=== PATIENT | female | born 1935 | race African-American/Black ===

== ENCOUNTER 2020-12-27 21:21 | Inpatient (IN) | payer MEDICARE, MEDICAID ==
[~2020-12-27] VITALS: Ht 170.2 cm; Wt 86.7 kg
[~2020-12-27 21:21] MED LIST: ALPR1TAB2; AMLO10TA4; CLAR-44 PO; CLON0.2T PO; CLOP75TA33; DOCU-150 PO; ENAL10TA71; HYDR-4135; HYDR25TA; LEVO125T8 PO; METH-774 PO; OMEP20CA14 PO; SUCR1TAB PO; VALS160T2 PO; VALS320T2
[2020-12-27 22:45] LABS: CHLORIDE 109 mEq/L (98-107)
[2020-12-27 22:49] LABS: RED BLOOD CELL COUNT 3.05 mill/uL (4.2-5.4)
[2020-12-27 22:50] LABS: HEMATOCRIT. 21.8 % (36.0-48.0); LYMPHOCYTES % 30.3 % (20.0-50.0); MEAN CORPUSCULAR HEMOGLOBIN 20.4 pg (28.0-32.0); MEAN CORPUSCULAR VOLUME 71.7 fL (81.0-99.0); MEAN PLATELET VOLUME 8.9 fl (7.4-10.4); MONOCYTES % 10.9 % (2.0-8.0); NEUTROPHILS % 57.1 % (40.0-76.0); PLATELET 202 x1000/uL (130-400); RED CELL DISTRIBUTION WIDTH 21.2 % (11.6-14.6)
[2020-12-27 22:51] LABS: BASOPHILS % 0.7 % (0.0-2.0)
[2020-12-27 22:53] LABS: HEMOGLOBIN. 6.2 g/dL (12.0-16.0)
[2020-12-27] MEDS ORDERED: PANTOPRAZOLE SODIUM 40 MG/VIAL IV ONE (23:00)
[2020-12-27] MEDS ORDERED: FUROSEMIDE 100MG/10ML VIAL IV STA (23:07)
[2020-12-27] MEDS ORDERED: SODIUM BICARBONATE 8.4% 1 MEQ/ML 50ML SYR IV ONE (23:15)
[2020-12-27] MEDS ORDERED: ALBUTEROL (0.083%) 2.5MG/3ML NEB HHN ONE (23:15)
[2020-12-27] MEDS ORDERED: INSULIN REGULAR (HUMULIN R) 300UNITS/3ML VIAL IV ONE (23:15)
[2020-12-27] MEDS ORDERED: ASPIRIN 325MG EC TABLET PO ONE (23:15)
[2020-12-27] MEDS ORDERED: CALCIUM CHLORIDE 1GM/10ML SYR IV ONE (23:15)
[2020-12-27] MEDS ORDERED: DEXTROSE 50% WATER 50ML SYRINGE IV ONE (23:15)
[2020-12-28] VITALS (11 sets, daily range): BP systolic 93–167; BP diastolic 43–83
[2020-12-28] MEDS ORDERED: DIPHENHYDRAMINE 50MG/ML VIAL IV PRN (00:15)
[2020-12-28] MEDS ORDERED: ONDANSETRON HCL 4MG/2ML INJ IV PRN (00:15)
[2020-12-28] MEDS ORDERED: LORAZEPAM 0.5MG TABLET PO PRN (00:15)
[2020-12-28] MEDS ORDERED: ACETAMINOPHEN 325MG TABLET PO PRN (00:15)
[2020-12-28] MEDS ORDERED: MAGNESIUM/ALUMINUM HYDROXIDE/SIMETHICONE 30ML UDC PO PRN (00:15)
[2020-12-28] MEDS ORDERED: CLONIDINE 0.1MG TABLET PO PRN (00:15)
[2020-12-28] MEDS ORDERED: ZOLPIDEM TARTRATE 5MG TABLET PO PRN (00:15)
[2020-12-28] MEDS ORDERED: ALBUTEROL (0.5%) 2.5MG/0.5ML NEB HHN ONE (00:43)
[2020-12-28] MEDS: MORPHINE SULFATE 2 MG/ML CPJ (NOT FOR IM USE) IV PRN (04:22)
[2020-12-28] MEDS: SUCRALFATE 1 G/10 ML UDC PO SCH ×4 (08:13→21:29)
[2020-12-28] MEDS: LEVOTHYROXINE SODIUM 125MCG TABLET PO SCH (08:13)
[2020-12-28] MEDS ORDERED: AMLODIPINE 2.5MG TABLET PO SCH (09:00)
[2020-12-28] MEDS: ACETAMINOPHEN 325MG TABLET PO PRN (09:23)
[2020-12-28] MEDS: PANTOPRAZOLE SODIUM 40 MG/VIAL IV SCH ×2 (09:23→21:30)
[2020-12-28] MEDS: SODIUM CHLORIDE 0.9% 1,000 ML IV SCH ×2 (09:36→17:58)
[2020-12-28 09:38] LABS: HEMATOCRIT. 27.6 % (36.0-48.0); HEMOGLOBIN. 8.5 g/dL (12.0-16.0); MEAN CORPUSCULAR HEMOGLOBIN 22.8 pg (28.0-32.0); MEAN PLATELET VOLUME 9.1 fl (7.4-10.4); PLATELET 192 x1000/uL (130-400); RED BLOOD CELL COUNT 3.73 mill/uL (4.2-5.4); RED CELL DISTRIBUTION WIDTH 22.9 % (11.6-14.6)
[2020-12-28 12:57] LABS: PLATELET ESTIMATE NORMAL
[2020-12-28] MEDS: HYDRALAZINE HCL 50MG TABLET PO SCH ×2 (13:08→21:30)
[2020-12-28] MEDS: ALPRAZOLAM 0.5 MG TABLET PO PRN ×2 (13:08→21:30)
[2020-12-28] MEDS: IRON SUCROSE COMPLEX 100 MG/5 ML ML IV SCH (14:13)
[2020-12-28 17:44] LABS: BG BASE EXCESS -1.2 mmol/L (-2.0-2.0); BG CARBOXYHEMOGLOBIN 0.2 % (0.5-1.5); BG DEOXYHEMOGLOBIN 28.2 % (0.0-5.0); BG FRACTION INSPIRED OXYGEN 44; BG HCO3 ACT 24.6 mmol/L (22.0-26.0); BG METHEMOGLOBIN 0.1 % (0.0-1.5); BG OXYGEN SATURATION 71.7 % (92.0-98.5); BG OXYHEMOGLOBIN 71.5 % (94.0-97.0); BG PCO2 45.9 mmHg (35.0-45.0); BG PH 7.347 (7.350-7.450); BG PO2 40.2 mmHg (75.0-100.0); BG SAMPLE SITE RIGHT RADIAL; BG VENT MODE NASAL CANNULA
[2020-12-28] MEDS ORDERED: HYDRALAZINE 20MG/ML VIAL IV PRN (18:45)
[2020-12-28 21:15] LABS: TOTAL IRON BINDING CAPACITY 471 ug/dL (250-450)
[2020-12-28] MEDS: AMLODIPINE 5MG TABLET PO SCH (21:30)
[2020-12-29] VITALS (12 sets, daily range): BP systolic 105–153; BP diastolic 35–91
[2020-12-29] MEDS: MORPHINE SULFATE 2 MG/ML CPJ (NOT FOR IM USE) IV PRN ×2 (05:07→11:11)
[2020-12-29 06:04] LABS: BASOPHILS % 0.2 % (0.0-2.0); HEMATOCRIT. 27.2 % (36.0-48.0); HEMOGLOBIN. 8.2 g/dL (12.0-16.0); LYMPHOCYTES % 3.9 % (20.0-50.0); MEAN CORPUSCULAR HEMOGLOBIN 22.3 pg (28.0-32.0); MEAN CORPUSCULAR VOLUME 73.8 fL (81.0-99.0); MEAN PLATELET VOLUME 9.5 fl (7.4-10.4); MONOCYTES % 5.5 % (2.0-8.0); NEUTROPHILS % 90.4 % (40.0-76.0); PLATELET 166 x1000/uL (130-400); RED BLOOD CELL COUNT 3.69 mill/uL (4.2-5.4); RED CELL DISTRIBUTION WIDTH 23.4 % (11.6-14.6)
[2020-12-29] MEDS: SUCRALFATE 1 G/10 ML UDC PO SCH ×4 (06:21→20:35)
[2020-12-29] MEDS: HYDRALAZINE HCL 50MG TABLET PO SCH ×2 (06:22→13:27)
[2020-12-29] MEDS: LEVOTHYROXINE SODIUM 125MCG TABLET PO SCH (06:22)
[2020-12-29 06:28] LABS: PHOSPHORUS 3.9 mg/dL (2.5-4.9)
[2020-12-29] MEDS: PANTOPRAZOLE SODIUM 40 MG/VIAL IV SCH ×2 (08:34→20:35)
[2020-12-29] MEDS: AMLODIPINE 5MG TABLET PO SCH ×2 (08:35→20:36)
[2020-12-29 11:41] LABS: CLARITY URINE CLEAR (CLEAR); COLOR URINE YELLOW (YELLOW); KETONES URINE NEGATIVE (NEGATIVE); LEUKOCYTE ESTERASE URINE NEGATIVE (NEGATIVE); NITRITE URINE NEGATIVE (NEGATIVE); OCCULT BLOOD URINE NEGATIVE (NEGATIVE); PROTEIN URINE NEGATIVE (NEGATIVE); SPECIFIC GRAVITY URINE 1.016 (1.005-1.030); UROBILINOGEN URINE 0.2 E.U./dL (0.2-1.0)
[2020-12-29 13:23] LABS: BG BASE EXCESS -0.8 mmol/L (-2.0-2.0); BG DEOXYHEMOGLOBIN 0.8 % (0.0-5.0); BG HCO3 ACT 25.1 mmol/L (22.0-26.0); BG METHEMOGLOBIN 0.4 % (0.0-1.5); BG OXYGEN SATURATION 99.2 % (92.0-98.5); BG OXYHEMOGLOBIN 98.8 % (94.0-97.0); BG PCO2 47.5 mmHg (35.0-45.0); BG PH 7.341 (7.350-7.450); BG SAMPLE SITE RIGHT BRACHIAL; BG TOTAL HEMOGLOBIN 9.2 g/dL (12.0-18.0); BG VENT MODE MASK - BIPAP
[2020-12-29] MEDS: IRON SUCROSE COMPLEX 100 MG/5 ML ML IV SCH (13:30)
[2020-12-29] MEDS: ALPRAZOLAM 0.5 MG TABLET PO PRN (13:40)
[2020-12-29] MEDS ORDERED: FUROSEMIDE 40MG/4ML VIAL IVP SCH (13:45)
[2020-12-29] MEDS: HYDRALAZINE HCL 25MG TABLET PO SCH ×2 (14:00→22:15)
[2020-12-29] MEDS: DOCUSATE SODIUM 100MG CAPSULE PO PRN (18:58)
[2020-12-30] VITALS (14 sets, daily range): BP systolic 118–154; BP diastolic 59–89
[2020-12-30] MEDS: ALPRAZOLAM 0.5 MG TABLET PO PRN ×3 (00:14→20:34)
[2020-12-30] MEDS: HYDRALAZINE HCL 25MG TABLET PO SCH ×3 (06:37→21:35)
[2020-12-30] MEDS: SUCRALFATE 1 G/10 ML UDC PO SCH ×4 (06:37→20:34)
[2020-12-30] MEDS: LEVOTHYROXINE SODIUM 125MCG TABLET PO SCH (06:37)
[2020-12-30 07:42] LABS: HEMATOCRIT. 25.1 % (36.0-48.0); HEMOGLOBIN. 7.6 g/dL (12.0-16.0); MEAN CORPUSCULAR HEMOGLOBIN 22.5 pg (28.0-32.0); MEAN CORPUSCULAR VOLUME 74.1 fL (81.0-99.0); MEAN PLATELET VOLUME 9.9 fl (7.4-10.4); PLATELET 164 x1000/uL (130-400); RED BLOOD CELL COUNT 3.38 mill/uL (4.2-5.4)
[2020-12-30 08:53] LABS: BG BASE EXCESS 2.1 mmol/L (-2.0-2.0); BG CARBOXYHEMOGLOBIN 0.6 % (0.5-1.5); BG DEOXYHEMOGLOBIN 8.8 % (0.0-5.0); BG FRACTION INSPIRED OXYGEN 50; BG HCO3 ACT 27.3 mmol/L (22.0-26.0); BG METHEMOGLOBIN 0.5 % (0.0-1.5); BG OXYGEN SATURATION 91.1 % (92.0-98.5); BG OXYHEMOGLOBIN 90.1 % (94.0-97.0); BG PCO2 45.5 mmHg (35.0-45.0); BG PH 7.396 (7.350-7.450); BG PO2 62.8 mmHg (75.0-100.0); BG SAMPLE SITE RIGHT RADIAL; BG TOTAL HEMOGLOBIN 8.3 g/dL (12.0-18.0); BG VENT MODE MASK - BIPAP
[2020-12-30] MEDS: AMLODIPINE 5MG TABLET PO SCH (08:54)
[2020-12-30] MEDS: PANTOPRAZOLE SODIUM 40 MG/VIAL IV SCH ×2 (08:55→20:34)
[2020-12-30 09:13] LABS: VITAMIN B12 SERUM > 2000.0 pg/mL (211-911)
[2020-12-30] MEDS: ACETAMINOPHEN 325MG TABLET PO PRN ×2 (10:29→23:14)
[2020-12-30 11:10] LABS: FERRITIN 117 ng/mL (10-291)
[2020-12-30] MEDS: IRON SUCROSE COMPLEX 100 MG/5 ML ML IV SCH (14:49)
[2020-12-30 16:31] LABS: NUCLEATED RED BLOOD CELLS 3 /100 WBC; PLATELET ESTIMATE NORMAL
[2020-12-30] MEDS: IPRATROPIUM/ALBUTEROL 0.5-3(2.5)MG/3ML NEB HHN SCH (21:03)
[2020-12-30] MEDS: DILTIAZEM HCL 60MG TABLET PO SCH (21:35)
[2020-12-31] VITALS (11 sets, daily range): BP systolic 121–148; BP diastolic 49–89
[2020-12-31] MEDS: IPRATROPIUM/ALBUTEROL 0.5-3(2.5)MG/3ML NEB HHN SCH ×4 (02:25→21:00)
[2020-12-31 05:47] LABS: BASOPHILS % 0.5 % (0.0-2.0); EOSINOPHILS % 0.7 % (0.0-5.0); LYMPHOCYTES % 10.1 % (20.0-50.0); MEAN CORPUSCULAR HEMOGLOBIN 22.4 pg (28.0-32.0); MEAN CORPUSCULAR VOLUME 76.1 fL (81.0-99.0); MEAN PLATELET VOLUME 9.5 fl (7.4-10.4); NEUTROPHILS % 77.7 % (40.0-76.0); PLATELET 158 x1000/uL (130-400); RED BLOOD CELL COUNT 3.55 mill/uL (4.2-5.4); RED CELL DISTRIBUTION WIDTH 24.5 % (11.6-14.6)
[2020-12-31] MEDS: SUCRALFATE 1 G/10 ML UDC PO SCH ×4 (06:10→22:34)
[2020-12-31] MEDS: MORPHINE SULFATE 2 MG/ML CPJ (NOT FOR IM USE) IV PRN ×2 (06:10→17:19)
[2020-12-31] MEDS: HYDRALAZINE HCL 25MG TABLET PO SCH ×3 (06:11→22:34)
[2020-12-31] MEDS: DOCUSATE SODIUM 100MG CAPSULE PO PRN ×2 (06:11→17:10)
[2020-12-31] MEDS: LEVOTHYROXINE SODIUM 125MCG TABLET PO SCH (06:11)
[2020-12-31] MEDS: DILTIAZEM HCL 60MG TABLET PO SCH ×3 (06:11→22:33)
[2020-12-31] MEDS: PANTOPRAZOLE SODIUM 40 MG/VIAL IV SCH ×2 (08:46→22:34)
[2020-12-31] MEDS: ALPRAZOLAM 0.5 MG TABLET PO PRN ×2 (08:51→22:33)
[2020-12-31] MEDS ORDERED: FUROSEMIDE 100MG/10ML VIAL IVP SCH (09:00)
[2020-12-31] MEDS: POLYETHYLENE GLYCOL 3350 (17GM) 1 DOSE PACK PO SCH (11:28)
[2020-12-31] MEDS ORDERED: LORAZEPAM 2MG/ML CPJ IV NR (14:00)
[2020-12-31 14:36] LABS: PLATELET ESTIMATE NORMAL
[2020-12-31 15:28] LABS: BG BASE EXCESS 1.8 mmol/L (-2.0-2.0); BG CARBOXYHEMOGLOBIN 0.4 % (0.5-1.5); BG DEOXYHEMOGLOBIN 18.9 % (0.0-5.0); BG FRACTION INSPIRED OXYGEN 21; BG HCO3 ACT 25.6 mmol/L (22.0-26.0); BG METHEMOGLOBIN 0.3 % (0.0-1.5); BG OXYHEMOGLOBIN 80.4 % (94.0-97.0); BG PH 7.458 (7.350-7.450); BG PO2 43.6 mmHg (75.0-100.0); BG SAMPLE SITE RIGHT RADIAL; BG TOTAL HEMOGLOBIN 9.2 g/dL (12.0-18.0); BG VENT MODE ROOM AIR
[2020-12-31] MEDS: SENNOSIDES/DOCUSATE SOD 8.6/50MG TABLET PO SCH (22:33)
[2021-01-01] VITALS (12 sets, daily range): BP systolic 117–158; BP diastolic 58–103
[2021-01-01] MEDS: IPRATROPIUM/ALBUTEROL 0.5-3(2.5)MG/3ML NEB HHN SCH ×4 (02:03→21:29)
[2021-01-01] MEDS: ACETAMINOPHEN 325MG TABLET PO PRN (02:11)
[2021-01-01 06:05] LABS: BASOPHILS % 0.3 % (0.0-2.0); EOSINOPHILS % 0.3 % (0.0-5.0); HEMATOCRIT. 26.8 % (36.0-48.0); HEMOGLOBIN. 7.9 g/dL (12.0-16.0); LYMPHOCYTES % 9.7 % (20.0-50.0); MEAN CORPUSCULAR HEMOGLOBIN 22.6 pg (28.0-32.0); MEAN CORPUSCULAR VOLUME 76.8 fL (81.0-99.0); MEAN PLATELET VOLUME 10.1 fl (7.4-10.4); MONOCYTES % 8.8 % (2.0-8.0); NEUTROPHILS % 80.9 % (40.0-76.0); PLATELET 148 x1000/uL (130-400); RED BLOOD CELL COUNT 3.49 mill/uL (4.2-5.4); RED CELL DISTRIBUTION WIDTH 24.9 % (11.6-14.6)
[2021-01-01] MEDS: HYDRALAZINE HCL 25MG TABLET PO SCH ×3 (06:47→22:02)
[2021-01-01] MEDS: SUCRALFATE 1 G/10 ML UDC PO SCH ×4 (06:47→22:01)
[2021-01-01] MEDS: LEVOTHYROXINE SODIUM 125MCG TABLET PO SCH (06:47)
[2021-01-01] MEDS: DILTIAZEM HCL 60MG TABLET PO SCH ×3 (06:48→22:02)
[2021-01-01] MEDS: DOCUSATE SODIUM 100MG CAPSULE PO PRN ×2 (08:39→17:34)
[2021-01-01] MEDS: CARVEDILOL 3.125 MG TABLET PO SCH ×2 (08:39→22:01)
[2021-01-01] MEDS: POLYETHYLENE GLYCOL 3350 (17GM) 1 DOSE PACK PO SCH (08:39)
[2021-01-01] MEDS: ALPRAZOLAM 0.5 MG TABLET PO PRN ×2 (08:40→18:39)
[2021-01-01] MEDS: PANTOPRAZOLE SODIUM 40 MG/VIAL IV SCH ×2 (08:40→21:00)
[2021-01-01] MEDS ORDERED: FUROSEMIDE 100MG/10ML VIAL IVP SCH (09:00)
[2021-01-01] MEDS ORDERED: BISACODYL 10MG SUPP PR PRN (12:15)
[2021-01-01] MEDS: MORPHINE SULFATE 2 MG/ML CPJ (NOT FOR IM USE) IV PRN (17:35)
[2021-01-01] MEDS: SENNOSIDES/DOCUSATE SOD 8.6/50MG TABLET PO SCH (21:00)
[2021-01-01] MEDS ORDERED: DIPHENHYDRAMINE 25MG CAPSULE PO PRN (22:30)
[2021-01-01] MEDS ORDERED: HYDROCODONE/ACETAMINOPHEN 5/325MG TABLET PO PRN (22:30)
[2021-01-01] MEDS ORDERED: ONDANSETRON HCL 4MG TABLET PO PRN (22:45)
[2021-01-01] MEDS ORDERED: ALPRAZOLAM 0.5 MG TABLET PO SCH (22:45)
[2021-01-02] VITALS (11 sets, daily range): BP systolic 127–147; BP diastolic 58–86
[2021-01-02] MEDS: IPRATROPIUM/ALBUTEROL 0.5-3(2.5)MG/3ML NEB HHN SCH ×3 (01:31→15:23)
[2021-01-02] MEDS: LEVOTHYROXINE SODIUM 125MCG TABLET PO SCH (06:36)
[2021-01-02] MEDS: DILTIAZEM HCL 60MG TABLET PO SCH ×2 (06:36→13:21)
[2021-01-02] MEDS: SUCRALFATE 1 G/10 ML UDC PO SCH ×3 (06:36→16:07)
[2021-01-02] MEDS: HYDRALAZINE HCL 25MG TABLET PO SCH ×2 (06:37→13:21)
[2021-01-02] MEDS ORDERED: PANTOPRAZOLE 40MG DR TABLET PO SCH (06:50)
[2021-01-02] MEDS: POLYETHYLENE GLYCOL 3350 (17GM) 1 DOSE PACK PO SCH (08:33)
[2021-01-02] MEDS: ALPRAZOLAM 0.5 MG TABLET PO PRN (08:33)
[2021-01-02] MEDS: DOCUSATE SODIUM 100MG CAPSULE PO PRN (08:33)
[2021-01-02] MEDS: CARVEDILOL 3.125 MG TABLET PO SCH (08:34)
[2021-01-02 09:59] LABS: HEMATOCRIT. 27.4 % (36.0-48.0); HEMOGLOBIN. 8.6 g/dL (12.0-16.0); MEAN CORPUSCULAR HEMOGLOBIN 23.9 pg (28.0-32.0); MEAN CORPUSCULAR VOLUME 76.5 fL (81.0-99.0); MEAN PLATELET VOLUME 9.4 fl (7.4-10.4); PLATELET 154 x1000/uL (130-400); RED BLOOD CELL COUNT 3.58 mill/uL (4.2-5.4); RED CELL DISTRIBUTION WIDTH 25.5 % (11.6-14.6)
[2021-01-02 10:17] LABS: PHOSPHORUS 2.2 mg/dL (2.5-4.9)
[2021-01-02 15:53] LABS: PLATELET ESTIMATE NORMAL
[2021-01-02] MEDS ORDERED: ALPRAZOLAM 0.5 MG TABLET PO NR (16:15)
[2021-01-02] MEDS ORDERED: FUROSEMIDE 40MG TABLET PO SCH (21:00)
== END 2021-01-02 18:55 | disposition home health service (06) | DRG 811 ==
LOC: ER 21:21 → 6WST 23:08 → ENRESERV 23:39 → 3WST 12-28 20:35
PROVIDERS: ADMIT Internal Medicine; ATTEND Internal Medicine
PROC: 30233N1 Transfusion of Nonautologous Red Blood Cells into Peripheral Vein, Percutaneous Approach (ICD-10-PCS; principal; 2020-12-28)
PROC: 5A09457 Assistance with Respiratory Ventilation, 24-96 Consecutive Hours, Continuous Positive Airway Pressure (ICD-10-PCS; 2020-12-28)
PROC: 5A09357 Assistance with Respiratory Ventilation, Less than 24 Consecutive Hours, Continuous Positive Airway Pressure (ICD-10-PCS; 2021-01-01)
DX: D50.0 Iron deficiency anemia secondary to blood loss (chronic) (principal); J96.01 Acute respiratory failure with hypoxia; K25.4 Chronic or unspecified gastric ulcer with hemorrhage; N17.9 Acute kidney failure, unspecified; I13.0 Hypertensive heart and chronic kidney disease with heart failure and stage 1 through stage 4 chronic kidney disease, or unspecified chronic kidney disease; E87.2 Acidosis; I47.1 Supraventricular tachycardia; K44.9 Diaphragmatic hernia without obstruction or gangrene; K59.00 Constipation, unspecified; M19.90 Unspecified osteoarthritis, unspecified site; N28.1 Cyst of kidney, acquired; E03.9 Hypothyroidism, unspecified; E78.5 Hyperlipidemia, unspecified; F41.1 Generalized anxiety disorder; I25.10 Atherosclerotic heart disease of native coronary artery without angina pectoris; I27.20 Pulmonary hypertension, unspecified; I35.0 Nonrheumatic aortic (valve) stenosis; I73.9 Peripheral vascular disease, unspecified; K21.9 Gastro-esophageal reflux disease without esophagitis; N18.9 Chronic kidney disease, unspecified; Z60.2 Problems related to living alone; I50.9 Heart failure, unspecified; Z20.822 Contact with and (suspected) exposure to COVID-19; Z86.711 Personal history of pulmonary embolism; Z86.718 Personal history of other venous thrombosis and embolism; Z95.2 Presence of prosthetic heart valve; Z95.828 Presence of other vascular implants and grafts; Z79.899 Other long term (current) drug therapy; Z79.01 Long term (current) use of anticoagulants; K57.90 Diverticulosis of intestine, part unspecified, without perforation or abscess without bleeding
CPT/HCPCS: 36415; 36600; 71045; 80048; 80053; 81003; 82270; 82375; 82607; 82728; 82746; 82805; 82962; 83540; 83550; 83735; 83880; 84100; 84443; 84484; 85025; 85044; 86850; 86900; 86920; 87426; 93005; 93970; 94640; 94660; 97116; 97162; 97535; 99291; C1893; C9113; J1815; J1940; J2060; J2270; J3490; P9016